=== PATIENT | male | born 2000 | race Caucasian/White ===

== ENCOUNTER 2023-05-25 22:04 | Emergency (ER) | payer BC, OTHER ==
[2023-05-25 22:12] VITALS: BMI 20.9
[2023-05-25] MEDS ORDERED: EPINEPHrine 1:1,000 0.3 MG/0.3 ML SYR IM ONE (22:18)
[2023-05-25] MEDS ORDERED: methylPREDNISolone NA SUCC 125 MG/2 ML VIAL IVPB ONE (22:18)
[2023-05-25] MEDS ORDERED: FAMOTIDINE 20 MG/50 ML IVPB 20 MG/50 ML MG IVPB ONE ×2 (22:18→22:27)
[2023-05-25] MEDS ORDERED: SODIUM CHLORIDE 1,000 ML IV STA (22:19)
[2023-05-25] MEDS ORDERED: methylPREDNISolone NA SUCC 125 MG/2 ML VIAL ONE (22:21)
[2023-05-25] MEDS ORDERED: EPINEPHrine/PF 1 MG/1 ML (1:1,000) AMPULE ONE (22:21)
[2023-05-26 01:46] VITALS: BP 113/82; PULSE 60; RESP 18; TEMP 98.1
== END 2023-05-26 02:44 | disposition home or self-care (01) ==
LOC: JER 22:04
PROC: 3E033GC Introduction of Other Therapeutic Substance into Peripheral Vein, Percutaneous Approach (ICD-10-PCS; principal; 2023-05-25)
PROC: 3E033GC Introduction of Other Therapeutic Substance into Peripheral Vein, Percutaneous Approach (ICD-10-PCS; 2023-05-25)
PROC: 3E023GC Introduction of Other Therapeutic Substance into Muscle, Percutaneous Approach (ICD-10-PCS; 2023-05-25)
DX: R20.2 Paresthesia of skin (principal); R11.10 Vomiting, unspecified; R09.81 Nasal congestion; R06.02 Shortness of breath; T78.40XA Allergy, unspecified, initial encounter
CPT/HCPCS: 99284-25; J0171